=== PATIENT | female | born 1970 | race Caucasian/White ===

== ENCOUNTER 2018-12-07 13:35 | Emergency (ER) | payer SELFPAY ==
[2018-12-07] MEDS ORDERED: SODIUM CHLORIDE 0.9% 1000ML 1,000 ML IV NR ×2 (14:30→15:30)
[2018-12-07 14:59] LABS: BASOPHILS % (AUTO) 0 % (0-3); EOSINOPHILS % (AUTO) 0 % (0-9); HEMATOCRIT 35 % (35-47); HEMOGLOBIN 11.9 gm/dl (12.0-15.5); LYMPHOCYTES % (AUTO) 23.4 % (10-50); MEAN CORPUSCULAR HEMOGLOBIN 26.5 pg (27.0-32.0); MEAN CORPUSCULAR HGB CONC 33.6 gm/dl (32.0-36.0); MONOCYTES % (AUTO) 7.3 % (0-12); NEUTROPHILS % (AUTO) 68.7 % (37-80)
[2018-12-07 15:09] LABS: MEAN CORPUSCULAR VOLUME 79 fL (81-99)
[2018-12-07 15:10] LABS: AMPHETAMINES NEGATIVE (NEGATIVE); BARBITUATES NEGATIVE (NEGATIVE); BENZODIAZEPINES NEGATIVE (NEGATIVE); CANNABINOL(THC) NEGATIVE (NEGATIVE); COCAINE(COC) NEGATIVE (NEGATIVE); METHAMPHETAMINES NEGATIVE (NEGATIVE); OPIATES(OPI) NEGATIVE (NEGATIVE); OXYCODONE(OXY) POSITIVE (NEGATIVE); PROPOXYPHENE(PPX) NEGATIVE (NEGATIVE)
[2018-12-07 15:20] LABS: ALBUMIN 3.6 gm/dl (3.4-5.0); BILIRUBIN,TOTAL 0.7 mg/dl (0.2-1.0); CALCIUM 8.5 mg/dl (8.5-10.1); CARBON DIOXIDE 29.5 mEq/L (21-32); CREATININE 0.78 mg/dl (0.60-1.00); POTASSIUM 3.4 mMol/L (3.5-5.1); TOTAL PROTEIN 7.4 gm/dl (6.4-8.2)
[2018-12-07] MEDS ORDERED: KETOROLAC TROMETHAMINE 30 MG/ML SOL IV ONE (15:20)
[2018-12-07] MEDS ORDERED: ONDANSETRON HCL 4 MG/2 ML SOL IV ONE (15:21)
[2018-12-07] MEDS ORDERED: SOLUMEDROL 125 MG/2 ML 125 MG/2 ML PDS IV ONE (15:23)
[2018-12-07] MEDS ORDERED: KETOROLAC TROMETHAMINE 30 MG/ML SOL ONE (15:23)
[2018-12-07] MEDS ORDERED: SOLUMEDROL 125 MG/2 ML 125 MG/2 ML PDS ONE (15:28)
[2018-12-07] MEDS ORDERED: ONDANSETRON HCL 4 MG/2 ML SOL ONE (15:28)
[2018-12-07] MEDS ORDERED: SODIUM CHLORIDE 0.9% 1000ML 1,000 ML IV ONE (15:47)
[2018-12-07] MEDS ORDERED: SODIUM CHLORIDE 0.9% FLUSH 10 ML SOL IV PRN (17:24)
[2018-12-07 17:25] LABS: INR 0.99 (0.86-1.12)
[2018-12-07] MEDS ORDERED: LABETALOL HYDROCHLORIDE 5 MG/ML SOL IV ONE ×2 (17:37→17:39)
[2018-12-07 17:59] VITALS: TEMP 98.5
[2018-12-07] MEDS ORDERED: NICARDIPINE HCL 25 MG in SODIUM CHLORIDE 0.9% 250 ML 250 ML IV SCH (18:00)
[2018-12-07] MEDS ORDERED: ALTEPLASE, RECOMBINANT 50 MG PDS IV ONE ×4 (18:05→18:48)
[2018-12-07] MEDS ORDERED: FENTANYL 100MCG/2ML SOL ONE (18:14)
[2018-12-07] MEDS ORDERED: FENTANYL 100MCG/2ML SOL IV ONE (18:17)
[2018-12-07 18:58] VITALS: O2SAT 98
[2018-12-07 19:04] VITALS: PULSE 90
[2018-12-07 19:08] VITALS: BP 144/89; RESP 17
[2018-12-08] MEDS ORDERED: NICARDIPINE HCL 25 MG in SODIUM CHLORIDE 0.9% 250 ML 250 ML IV SCH (09:00)
== END 2018-12-07 19:15 | disposition short-term general hospital (02) | DRG 385 ==
LOC: ED 13:35 → EDBD 13:35 → ED 19:15
DX: K50.919 Crohn's disease, unspecified, with unspecified complications (principal); I63.9 Cerebral infarction, unspecified; G81.90 Hemiplegia, unspecified affecting unspecified side; R10.9 Unspecified abdominal pain; R19.7 Diarrhea, unspecified; H53.2 Diplopia; R20.2 Paresthesia of skin; I10 Essential (primary) hypertension; F11.90 Opioid use, unspecified, uncomplicated
CPT/HCPCS: 70450; 74177; 80053; 80305; 82962; 84484; 85025; 85610; 85730; 93005; 96365; 96374; 96375; 99070; 99284; 99285; J1885; J2405; J2930; J2997; J3010; Q9967; J3490